=== PATIENT | female | born 1975 ===

== ENCOUNTER 2017-09-26 10:23 | Emergency (ER) | payer OTHER ==
[2017-09-26 10:24] VITALS: BMI 34.5
[2017-09-26 11:07] VITALS: TEMP 97.6
[2017-09-26 11:47] LABS: HCG,QUALITATIVE URINE NEGATIVE (NEGATIVE)
[2017-09-26 11:48] LABS: SQUAMOUS EPITHIAL < 1 /hpf (0-5); URINE BILIRUBIN NEGATIVE (NEGATIVE); URINE BLOOD NEGATIVE (NEGATIVE); URINE CLARITY Clear (Clear); URINE COLOR Yellow (YELLOW); URINE GLUCOSE (UA) NORMAL (Normal); URINE LEUKOCYTE ESTERASE NEG Leu/uL (Negative); URINE PROTEIN NEGATIVE (NEGATIVE); URINE UROBILINOGEN NORMAL mg/dL (0.2-1.0)
[2017-09-26] MEDS ORDERED: DiphenhydrAMINE 50 mg/ml Inj IVP STA (12:04)
--- NOTE | 2017-09-26 12:05 | C.PDOC ---
History Of Present Illness 41 y/o female presents to ED for evaluation of near syncope episode and dizziness developed earlier today. Patient reports she was at [employer] and " vision blurred" following by a near syncope episode. Patient describes dizzienss as "room spinning" and states head feels fuzzy, denies trauma, fever, nausea, vomiting, loc, numbness or any other complaints at this time. Time Seen by Provider: 09/26/17 11:02 Chief Complaint (Nursing): Weakness/Neurological Deficit History Per: Patient History/Exam Limitations: no limitations Onset/Duration Of Symptoms: Hrs Current Symptoms Are (Timing): Still Present Past Medical History Reviewed: Historical Data, Nursing Documentation, Vital Signs Vital Signs: Last Vital Signs Temp 97.6 F 09/26/17 10:49 Pulse 69 09/26/17 15:11 Resp 20 09/26/17 15:11 BP 137/62 09/26/17 15:11 Pulse Ox 100 09/26/17 15:11 - Medical History PMH: Anemia Surgical History: Tonsillectomy Family History: States: No Known Family Hx - Social History Hx Alcohol Use: No Hx Substance Use: No - Immunization History Hx Tetanus Toxoid Vaccination: No Hx Influenza Vaccination: No Hx Pneumococcal Vaccination: No Review Of Systems Constitutional: Negative for: Fever, Chills Eyes: Positive for: Vision Change Gastrointestinal: Negative for: Nausea, Vomiting Skin: Negative for: Rash Neurological: Positive for: Dizziness. Negative for: Weakness, Numbness, Headache Physical Exam - Physical Exam Appears: Non-toxic, No Acute Distress Skin: Warm, Dry, No Rash Head: Atraumatic, Normacephalic Eye(s): bilateral: PERRL, EOMI, Other (Horizontal nystagmus) Ear(s): Bilateral: Normal Oral Mucosa: Moist Throat: No Erythema, No Exudate Neck: Normal ROM, Supple Cardiovascular: Rhythm Regular Respiratory: Normal Breath Sounds, No Rales, No Rhonchi, No Wheezing Gastrointestinal/Abdominal: Soft, No Tenderness, No Guarding, No Rebound Back: Normal Inspection, CVA Tenderness Extremity: Normal ROM, No Swelling Neurological/Psych: Oriented x3, Normal Speech, Normal Cognition, Normal Motor Gait: Unsteady ED Course And Treatment - Laboratory Results Result Diagrams: 09/26/17 12:28 09/26/17 12:28 O2 Sat by Pulse Oximetry: 99 (RA) Pulse Ox Interpretation: Normal - CT Scan/US CT head w/o contrast Other Rad Studies (CT/US): Read By Radiologist, Radiology Report Reviewed CT/US Interpretation: PROCEDURE: CT HEAD WITHOUT CONTRAST. HISTORY: Headache and dizziness. COMPARISON: None available. TECHNIQUE: Axial computed tomography images were obtained through the head/brain without intravenous contrast. Radiation dose: Total exam DLP = 1225.43 mGy-cm. This CT exam was performed using one or more of the following dose reduction techniques: Automated exposure control, adjustment of the mA and/or kV according to patient size, and/or use of iterative reconstruction technique. FINDINGS: HEMORRHAGE: No intracranial hemorrhage. BRAIN: Rubio-white matter differentiation is preserved. There is no mass, mass effect or abnormal extra-axial fluid collection. There is no territorial infarction. The midline sagittal structures are normal. VENTRICLES: The ventricles are normal in size, shape and configuration. There is a 6 mm rim calcified lesion in the lateral aspect of the inferior 4th ventricle and similar 5 mm rim calcified lesion in the inferior midline 4th ventricle. No evidence of obstructive hydrocephalus. CALVARIUM: The skull base and calvarium are normal. PARANASAL SINUSES: Predominantly clear. MASTOID AIR CELLS: Predominantly clear. OTHER FINDINGS: None. IMPRESSION: No acute intracranial abnormality. Two subcentimeter rim calcified lesions in the lateral aspect of the inferior 4th ventricle and midline inferior 4th ventricle likely represents sequela of remote infection/ inflammation. However MRI of the brain without and with intravenous contrast is recommended for definitive evaluation. Medical Decision Making Medical Decision Making: On second re-exam, the patient reported that she still had dizziness and unsteady gait. The case was discussed with Dr. Darling who agreed to admit the patient for intractable dizziness and posterior circulation compromise. After the admission, the patient reports that she improved and is refusing the admission at this time. Patient signed out AMA. Disposition - Disposition Referrals: Arash Gutierrez MD [Staff Provider] - Disposition: AGAINST MEDICAL ADVICE Disposition Time: 14:00 Condition: STABLE Additional Instructions: Follow up with the medical doctor within 1-2 days. Return if worsened. Prescriptions: Meclizine HCl 25 mg PO TID #30 ctb Instructions: Vertigo (a Type of Dizziness) Forms: [employer] (Swedish) - Clinical Impression Clinical Impression: Vertigo - PA / LOG LOADER / Resident Statement MD/DO has reviewed & agrees with the documentation as recorded. - Scribe Statement The provider has reviewed the documentation as recorded by the Jarekibjones García All medical record entries made by the Magalys were at my direction and personally dictated by me. I have reviewed the chart and agree that the record accurately reflects my personal performance of the history, physical exam, medical decision making, and the department course for this patient. I have also personally directed, reviewed, and agree with the discharge instructions and disposition.
[2017-09-26] MEDS ORDERED: DiphenhydrAMINE 50 mg/ml Inj ONE (12:30)
[2017-09-26 12:31] LABS: BASO % 0.3 % (0.0-2.0); EOS % 0.4 % (0.0-4.0); LYMPH # 1.6 K/uL (1.0-4.3); LYMPH % 16.6 % (20.0-40.0); MEAN CORPUSCULAR HEMOGLOBIN 29.7 pg (27.0-31.0); MEAN CORPUSCULAR HGB CONC 33.9 g/dL (33.0-37.0); MEAN PLATELET VOLUME 6.6 fL (7.2-11.7); MONO # 0.5 K/uL (0.0-0.8); MONO % 5.2 % (0.0-10.0); NEUT # 7.4 K/uL (1.8-7.0); NEUT % 77.5 % (50.0-75.0); RBC 4.58 Mil/uL (3.80-5.20); WHITE BLOOD COUNT 9.5 K/uL (4.8-10.8)
[2017-09-26] MEDS ORDERED: Sodium Chloride 0.9% 1,000 ML ONE (12:31)
[2017-09-26 12:34] LABS: HEMOGLOBIN 13.6 g/dL (11.0-16.0); MEAN CELL VOLUME 87.6 fL (81.0-99.0)
[2017-09-26 12:45] LABS: ALB/GLOB RATIO 1.3 (1.0-2.1); ALT/SGPT 23 U/L (9-52); AST/SGOT 25 U/L (14-36); BLOOD UREA NITROGEN 11 mg/dL (7-17); CALCIUM 9.5 mg/dl (8.6-10.4); GFR AFRICAN-AMERICAN > 60; GFR NON-AFRICAN AMERICAN > 60
--- NOTE | 2017-09-26 13:07 | CT ---
PROCEDURE: CT HEAD WITHOUT CONTRAST. HISTORY: Headache and dizziness COMPARISON: None available. TECHNIQUE: Axial computed tomography images were obtained through the head/brain without intravenous contrast. Radiation dose: Total exam DLP = 1225.43 mGy-cm. This CT exam was performed using one or more of the following dose reduction techniques: Automated exposure control, adjustment of the mA and/or kV according to patient size, and/or use of iterative reconstruction technique. FINDINGS: HEMORRHAGE: No intracranial hemorrhage. BRAIN: Rubio-white matter differentiation is preserved. There is no mass, mass effect or abnormal extra-axial fluid collection. There is no territorial infarction. The midline sagittal structures are normal. VENTRICLES: The ventricles are normal in size, shape and configuration. There is a 6 mm rim calcified lesion in the lateral aspect of the inferior 4th ventricle and similar 5 mm rim calcified lesion in the inferior midline 4th ventricle. No evidence of obstructive hydrocephalus. CALVARIUM: The skull base and calvarium are normal. PARANASAL SINUSES: Predominantly clear. MASTOID AIR CELLS: Predominantly clear. OTHER FINDINGS: None. IMPRESSION: No acute intracranial abnormality. Two subcentimeter rim calcified lesions in the lateral aspect of the inferior 4th ventricle and midline inferior 4th ventricle likely represents sequela of remote infection/inflammation. However MRI of the brain without and with intravenous contrast is recommended for definitive evaluation.
[2017-09-26] MEDS ORDERED: Enoxaparin 40 mg Syringe SC SCH (14:00)
[2017-09-26 15:12] VITALS: BP 137/62; PULSE 69; RESP 20
--- NOTE | 2017-09-27 19:58 | CARD ---
APPROVED REPORT EKG Measurement Heart [id number] [id number] <Conclusion> Normal sinus rhythm Normal ECG
[2017-10-01 10:10] VITALS: O2SAT 99
== END 2017-09-26 15:11 | disposition left against medical advice (07) ==
LOC: C.ER 10:23
DX: R42 Dizziness and giddiness (principal)
CPT/HCPCS: 70450; 80053; 81001; 82948; 84703; 85025; 93005; 96374; 96375; 99285; J1200; J2765

== ENCOUNTER 2017-09-27 22:05 | Inpatient (IN) | payer OTHER ==
[2017-09-27 22:06] VITALS: BMI 34.5
[2017-09-27] MEDS ORDERED: Lactated Ringer's 1,000 ML IVB STA (22:40)
[2017-09-27 23:04] LABS: BASO # 0.1 K/uL (0.0-0.2); BASO % 0.6 % (0.0-2.0); EOS # 0.1 K/uL (0.0-0.7); EOS % 1.5 % (0.0-4.0); HEMOGLOBIN 12.6 g/dL (11.0-16.0); LYMPH # 2.3 K/uL (1.0-4.3); LYMPH % 26.7 % (20.0-40.0); MEAN CELL VOLUME 87.8 fL (81.0-99.0); MEAN CORPUSCULAR HEMOGLOBIN 29.8 pg (27.0-31.0); MEAN CORPUSCULAR HGB CONC 33.9 g/dL (33.0-37.0); MEAN PLATELET VOLUME 6.5 fL (7.2-11.7); MONO # 0.7 K/uL (0.0-0.8); MONO % 7.7 % (0.0-10.0); NEUT # 5.5 K/uL (1.8-7.0); NEUT % 63.5 % (50.0-75.0); RBC 4.22 Mil/uL (3.80-5.20); RED CELL DISTRIBUTION WIDTH 15.1 % (11.5-14.5); WHITE BLOOD COUNT 8.7 K/uL (4.8-10.8)
[2017-09-27] MEDS ORDERED: Iodixanol 320 MG/ML 100 ML BOTTLE IV ONE (23:12)
[2017-09-27 23:16] LABS: BLOOD UREA NITROGEN 15 mg/dL (7-17); CALCIUM 9.3 mg/dl (8.6-10.4); GFR AFRICAN-AMERICAN > 60; GFR NON-AFRICAN AMERICAN > 60
--- NOTE | 2017-09-28 00:39 | CT ---
EXAM: CT Head With Intravenous Contrast EXAM DATE/TIME: 09/27/2017 10:42 PM CLINICAL HISTORY: 41 years old, female; Pain; Headache and other: Dizzy, headache. Rim calcified lesions on nonconct; Patient HX: 09-26-17 TECHNIQUE: Axial computed tomography images of the head/brain with intravenous contrast. All CT scans at this facility use one or more dose reduction techniques, viz.: automated exposure control; ma/kV adjustment per patient size (including targeted exams where dose is matched to indication; i.e. head); or iterative reconstruction technique. Coronal and sagittal reformatted images were created and reviewed. CONTRAST: 100 mL of [id number] administered intravenously. COMPARISON: CT - HEAD W/O CONTRAST 2017-09-26 12:44 FINDINGS: Brain and ventricles: Ventricles are normal in size and configuration. There is no midline shift. Vascular structures enhance in the expected fashion. There are no enhancing masses. There are no intra-axial masses. There is a 4.8 mm nodule with calcified rim in the fourth ventricle. There is a 6 mm nodule in the fourth ventricle with a calcified rim. There are no abnormal fluid collections. Rubio-white differentiation is maintained. Bones: Cranial vault is intact. Soft tissues: unremarkable Sinuses: There is no acute sinusitis. Ears and mastoids: Middle ears and mastoids are unremarkable Orbits: Orbital contents are unremarkable. IMPRESSION: Small calcified nodules in the fourth ventricle, no intra-axial masses/lesions Findings raise the possibility of cysticercosis
--- NOTE | 2017-09-28 00:47 | C.PDOC ---
Time Seen by Provider: 09/27/17 22:27 Chief Complaint (Nursing): Dizziness/Lightheaded History Per: Patient, Family Onset/Duration Of Symptoms: Days (1), Waxing/Waning Current Symptoms Are (Timing): Still Present Fall Associated With With Symptoms: No Severity: Moderate Additional History Per: Prior Records - Symptoms Of CVA Recent Head Trauma: No Past Medical History Reviewed: Historical Data, Nursing Documentation, Vital Signs Vital Signs: Last Vital Signs Temp 99.2 F 09/27/17 22:20 Pulse 95 H 09/27/17 22:20 Resp 18 09/27/17 22:20 BP 125/73 09/27/17 22:20 Pulse Ox 99 09/27/17 22:20 - Medical History PMH: Anemia Other PMH: Ulcerative Colitis Surgical History: Tonsillectomy Family History: States: Unknown Family Hx - Social History Hx Alcohol Use: No Hx Substance Use: No - Immunization History Hx Tetanus Toxoid Vaccination: No Hx Influenza Vaccination: No Hx Pneumococcal Vaccination: No Review Of Systems Except As Marked, All Systems Reviewed And Found Negative. Constitutional: Negative for: Fever Cardiovascular: Negative for: Chest Pain Respiratory: Negative for: Shortness of Breath Gastrointestinal: Negative for: Vomiting, Abdominal Pain Musculoskeletal: Negative for: Neck Pain Skin: Negative for: Rash Neurological: Positive for: Numbness (left face, resolved), Headache, Dizziness. Negative for: Seizures Physical Exam - Physical Exam Appears: Non-toxic, No Acute Distress Skin: Normal Color, Warm, Dry, No Rash Head: Atraumatic, Normacephalic Eye(s): bilateral: Normal Inspection, PERRL, EOMI Neck: Normal ROM, Supple Cardiovascular: Rhythm Regular Respiratory: Normal Breath Sounds, No Accessory Muscle Use Gastrointestinal/Abdominal: Soft, No Tenderness Back: No CVA Tenderness Extremity: Normal ROM Neurological/Psych: Oriented x3, Normal Speech, Normal Cognition, No Cerebellar Signs, Normal Motor, Normal Sensation ED Course And Treatment - Laboratory Results Result Diagrams: 09/27/17 23:01 09/27/17 23:01 Lab Interpretation: No Acute Changes ECG: Interpreted By Me, Viewed By Me ECG Rhythm: Sinus Rhythm, Nonspecific Changes ECG Interpretation: No Acute Changes Rate From EC O2 Sat by Pulse Oximetry: 99 Pulse Ox Interpretation: Normal - CT Scan/US CT head with contrast Other Rad Studies (CT/US): Read By Radiologist, Radiology Report Reviewed CT/US Interpretation: IMPRESSION: Small calcified nodules in the fourth ventricle, no intra-axial. masses/lesions. . Findings raise the possibility of cysticercosis Disposition Discussed With : Wendy Guallpa Comment: She accepted pt on her service. She wants to consult Dr. Napier for neurology. Doctor Will See Patient In The: Hospital Counseled Patient/Family Regarding: Studies Performed, Diagnosis - Disposition Disposition: HOSPITALIZED Disposition Time: 00:49 Condition: FAIR - Clinical Impression Clinical Impression: Dizziness, Headache, Calcified intracranial lesions
[2017-09-28 02:01] VITALS: RESP 20
[2017-09-28 20:01] LABS: HDL CHOLESTEROL 57 mg/dL (30-70); LDL CHOLESTEROL 90 mg/dL (0-129)
[2017-09-28 20:06] LABS: IRON 90 ug/dL (37-170)
[2017-09-28 20:15] LABS: % IRON SATURATION 21 (20-55); TOTAL IRON BINDING CAPACITY 416 ug/dL (250-450)
[2017-09-28 21:13] LABS: FOLATE > 20.0 ng/mL
--- NOTE | 2017-09-29 02:04 | HP ---
The patient is a 41 years old female. CHIEF COMPLAINT: Dizziness and lightheadedness. HISTORY OF PRESENT ILLNESS: Ms. Trixie Ramirez is a 41 years old lady with history of anemia, ulcerative colitis, tonsillectomy. Came in [facility] with dizziness and lightheadedness, it is like waxing and waning, still present at the time of interview. No nausea or vomiting. No fever. No chills. was sitting at the bedside also. No hematuria. No dysuria. Discussion done with Dr. Low Napier. Need MRI. Reviewed CAT scan. PAST MEDICAL HISTORY: Anemia, ulcerative colitis, tonsillectomy. 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 FAMILY HISTORY: The patient does not know. SOCIAL HISTORY: Alcohol, no. Substance abuse, no. Smoking, no. REVIEW OF SYSTEMS: The patient is seen and examined at bedside. Looking comfortable. Still having dizziness and lightheaded, but improving. No fever. No chills. No hematuria or hematochezia. No swelling of the legs. No dysuria. PHYSICAL EXAMINATION: VITAL SIGNS: Temperature 99.2, pulse 95, respiratory rate 18, blood pressure 125/73, pulse oximetry 99%. HEENT: Head normocephalic and atraumatic. Eyes, PERRLA. Extraocular muscles intact. Conjunctivae clear. Nose patent. Mucous membranes moist. NECK: Supple. No carotid bruit, JVD, or thyromegaly. CHEST: Bilaterally symmetrical. HEART: S1 and S2 positive. LUNGS: Clear to auscultation. ABDOMEN: Soft. Bowel sounds present. No organomegaly. EXTREMITIES: No edema. No cyanosis. NEUROLOGICAL: The patient is awake, alert. Moving all 4 extremities. No focal deficits. LABORATORY DATA: White blood cells 8.7, hemoglobin 12.6, hematocrit 37, platelets 295. Sodium 141, potassium 4.4, BUN 60, creatinine 0.7, glucose 119. ASSESSMENT AND PLAN: Ms. Trixie Ramirez is a 41-year-old lady with hyperglycemia, came with headache and dizziness. CAT scan already done shows calcified nodule in the fourth ventricle, no intra-axial masses or lesions findings. There is a possibility of cystic necrosis. Discussion done with Dr. Low Napier. Will do MRI of the head but still getting little bit dizziness and headache. History of ulcerative colitis, tonsillectomy, appendectomy. Consult with Dr. Marco Antonio Cabrera, Infectious Disease. Will follow up with Dr. Krunal Azul for ulcerative colitis. Repeat labs. We will follow up. Wendy Guallpa MD
[2017-09-29 07:54] LABS: HEMOGLOBIN 13.4 g/dL (11.0-16.0); MEAN CELL VOLUME 87.8 fL (81.0-99.0); MEAN CORPUSCULAR HEMOGLOBIN 29.6 pg (27.0-31.0); MEAN CORPUSCULAR HGB CONC 33.7 g/dL (33.0-37.0); MEAN PLATELET VOLUME 6.7 fL (7.2-11.7); RBC 4.52 Mil/uL (3.80-5.20); RED CELL DISTRIBUTION WIDTH 14.8 % (11.5-14.5); WHITE BLOOD COUNT 7.2 K/uL (4.8-10.8)
[2017-09-29 08:10] LABS: BLOOD UREA NITROGEN 10 mg/dL (7-17); GFR AFRICAN-AMERICAN > 60; GFR NON-AFRICAN AMERICAN > 60
--- NOTE | 2017-09-29 08:18 | CON ---
DATE: 09/28/2017 CHIEF COMPLAINT: Calcified nodules in the fourth ventricle. No masses. Dizziness. 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 She also was lightheaded; therefore, came to the hospital for further evaluation. She had a CAT scan of her head, which showed small calcified nodules in the fourth ventricle. No intra-axial masses or lesions. Findings raise the possibility of cysticercosis. She has a history of eating uncooked pork upon taking her history, but with us many months ago. No focal seizures. No change in sense of vision, taste, or smell. No focal weakness of the extremities or paresthesias. PAST MEDICAL HISTORY: Anemia hospital acquired. FAMILY HISTORY: Noncontributory. SOCIAL HISTORY: No illicit drug use, smoking or EtOH abuse. ALLERGIES: NO KNOWN DRUG ALLERGIES. REVIEW OF SYSTEMS: A 14-point review of systems negative except per HPI. LABORATORY DATA: Sodium is 141, potassium 4.4, chloride 107, carbon dioxide 22, BUN of 15, creatinine of 0.7, random glucose of 118. PHYSICAL EXAMINATION: VITAL SIGNS: Temperature 98.5, pulse rate of 89, blood pressure 101/66, respiratory rate 20, oxygen saturation 97% on room air. GENERAL: The patient was sitting up in bed, in no acute distress. HEENT: She is atraumatic and normocephalic. PERRLA. Extraocular muscles intact. NECK: Supple. No JVD. No adenopathy noted. LUNGS: Clear to auscultation. No adventitious sounds. HEART: S1 and S2 normal. Regular rate and rhythm. No murmurs, rubs, or gallops. ABDOMEN: Soft, nontender, and nondistended. Bowel sounds present. EXTREMITIES: No clubbing. No cyanosis. Peripheral pulses 2+felt bilaterally. NEUROLOGIC: The patient is alert and oriented to person, place, month, and year. Speech is fluent without any errors. Cranial nerves II through XII are intact. Motor exam: Moves all extremities equally. Toes are downgoing bilaterally. Sensory exam: Light touch, pinprick, proprioception and, vibration are intact. DTRs are 2+ throughout. Coordination: Xotoro-on-tvep intact. No dysmetria noted. Gait is deferred for now. ASSESSMENT AND PLAN: This is a 41-year-old woman with history of anemia, ulcerative colitis, who presents with dizziness in terms of spinning sensation of the room suddenly with occasional nausea, but no vomiting. No focal weakness on neuro exam. She had a CAT scan of the head, shows calcified nodule in the fourth ventricle, could be suspicious for possibly old cysticercosis. She has history of eating uncooked pork many months ago. She has a very poor diet and poor eating habits as well. She is overweight for her height. At this time, her dizziness seems to be more like lightheadedness superimposed on positional vertigo. At this time, we recommend, 1. MRI of the brain with and without contrast to assess the calcified lesion of the fourth ventricle to see if it is cysticercosis or not. 2. Infectious Disease consult for possible cysticercosis in the past. 3. Vestibular therapies now. 4. Salt restriction in diet and avoid sudden movement and continue current and present medical management. Thank you for this consult. Low Napier MD
[2017-09-29] MEDS: Enoxaparin 30 mg Syringe SC SCH (10:08)
[2017-09-29] MEDS ORDERED: Gadodiamide 287 mg/ml 20 ml IV ONE (15:02)
--- NOTE | 2017-09-29 16:07 | MRI ---
PROCEDURE: MRI BRAIN WITH AND WITHOUT CONTRAST HISTORY: calcified lession in the fourth ventricle/. COMPARISON: Comparison is made with the previous CT of the head without contrast dated 09/27/2017 and 09/26/2017 TECHNIQUE: Multiplanar, multisequence MR images of the brain were obtained with and without intravenous contrast enhancement. FINDINGS: HEMORRHAGE: None DWI: No evidence of an acute or early subacute infarction. BRAIN PARENCHYMA: No evidence of enhancing mass lesion. The previously noted calcified lesion at the 4th ventricle in the previous CT are not clearly seen in the current study. No atrophy or chronic microvascular ischemic changes. ENHANCEMENT: No abnormal intracranial enhancement. VENTRICLES: Unremarkable. No hydrocephalus. CRANIUM: Unremarkable. ORBITS: Grossly unremarkable. PARANASAL SINUSES/MASTOIDS: Clear VASCULAR SYSTEM: Skull base flow voids intact. OTHER FINDINGS: None . IMPRESSION: No evidence of enhance mass lesion in the brain. No evidence of enhancing mass lesion in the 4th ventricle. Previously noted 2 rain calcified lesion at the 4th ventricle in the previous CT are not clearly visualized in this study. Six-month follow-up reassessment by CT or MRI is suggested to document stability. No evidence of hydrocephalus or acute pathology in the brain.
--- NOTE | 2017-09-29 16:08 | CP.PCM.CON ---
History of Present Illness - History of Present Illness History of Present Illness: INFECTIOUS DISEASE CONSULT; DICTATED; DICTATION NUMBER; # [id number] IMPRESSION; .DIZZINESS/BERGERON-LEFT TEMPORAL REGION-RESOLVED .R/O EXTRAPARENCHYMAL-CYSTICERCOSIS ( 2 SMALL CALCIFIED NODULES +VE FOURTH VENTRICLE BRAIN ) ? NONVIABLE CYSTS/ VS OLD CYSTICERCOSIS. . POSITIONAL VERTIGO. .HX OF ULCERATIVE COLITIS. PLAN; . CYSTICERCOSIS SEROLOGY. . fOLLOW-UP MRI OF THE BRAIN WITH AND WITHOUT CONTRAST. . ENT EVALUATION FOR VESTIBULAR FUNCTION. . PATIENT DENIES ANY VISUAL PROBLEMS /FLOATERS BUT IF WE NEED TREATMENT WILL NEED OPHTHALMOLOGY EVALUATION. . HIV 1/2 ANTIBODY. . CAT SCAN DOES NOT SHOW ANY VENTRICULAR DILATATION OR HYDROCEPHALUS AND NO ABNORMAL INTRACRANIAL ENHANCEMENT. WILL FOLLOW MRI BRAIN AND MAKE FURTHER RECOMMENDATIONS NEEDED. . PATIENT ENCOURAGED NOT TO EAT UNDERCOOKED PORK OR BEEF CASE DISCUSSED WITH STAFF/ AND WITH NEUROLOGY. Past Patient History - Infectious Disease Hx of Infectious Diseases: None - Past Medical History & Family History Past Medical History?: Yes - Past Social History Smoking Status: Never Smoked - CARDIAC Hx Cardiac Disorders: No - PULMONARY Hx Respiratory Disorders: No - NEUROLOGICAL Hx Neurological Disorder: No - HEENT Hx HEENT Problems: No - RENAL Hx Chronic Kidney Disease: No - ENDOCRINE/METABOLIC Hx Endocrine Disorders: No - HEMATOLOGICAL/ONCOLOGICAL Hx Blood Disorders: Yes Hx Anemia: Yes - INTEGUMENTARY Hx Dermatological Problems: No - MUSCULOSKELETAL/RHEUMATOLOGICAL Hx Musculoskeletal Disorders: No Hx Falls: No - GASTROINTESTINAL Hx Gastrointestinal Disorders: Yes Hx Colitis: Yes - GENITOURINARY/GYNECOLOGICAL Hx Genitourinary Disorders: No - PSYCHIATRIC Hx Psychophysiologic Disorder: No Hx Substance Use: No - SURGICAL HISTORY Hx Surgeries: Yes Hx Tonsillectomy: Yes - ANESTHESIA Hx Anesthesia: Yes Hx Anesthesia Reactions: No Hx Malignant Hyperthermia: No Meds Allergies/Adverse Reactions: Allergies Allergy/AdvReac Type Severity Reaction Status Date / Time No Known Allergies Allergy Verified 09/27/17 22:24 - Medications Medications: Current Medications Enoxaparin Sodium (Lovenox) 30 mg SC DAILY [facility] Last Admin: 09/29/17 10:08 Dose: 30 mg Famotidine (Pepcid) 40 mg PO DAILY [facility] Last Admin: 09/29/17 10:16 Dose: 40 mg Folic Acid (Folic Acid) 1 mg PO DAILY [facility] Last Admin: 09/29/17 10:09 Dose: 1 mg Meclizine HCl (Antivert) 25 mg PO TID PRN PRN Reason: Dizziness Pneumococcal Polyvalent Vaccine (Pneumovax 23 Vaccine) 0.5 ml IM .ONCE ONE Stop: 09/30/17 10:01 Results - Vital Signs Recent Vital Signs: Last Vital Signs Temp 98.1 F 09/29/17 08:02 Pulse 78 09/29/17 08:02 Resp 20 09/29/17 08:02 BP 100/65 09/29/17 08:02 Pulse Ox 97 09/29/17 08:02 - Labs Result Diagrams: 09/29/17 07:48 09/29/17 07:48 Labs: Laboratory Results - last 24 hr 09/28/17 09/28/17 09/28/17 19:18 19:18 19:18 WBC RBC Hgb Hct MCV MCH MCHC RDW Plt Count MPV Sodium Potassium Chloride Carbon Dioxide Anion Gap BUN Creatinine Est GFR ( Amer) Est GFR (Non-Af Amer) POC Glucose (mg/dL) Random Glucose Hemoglobin A1c 5.5 Calcium Iron 90 TIBC 416 % Saturation 21 Triglycerides 171 H Cholesterol 166 LDL Cholesterol Direct 90 HDL Cholesterol 57 Vitamin B12 > 1000 H Folate > 20.0 TSH 3rd Generation Urine HCG, Qual 09/29/17 09/29/17 09/29/17 07:15 07:17 07:27 WBC RBC Hgb Hct MCV MCH MCHC RDW Plt Count MPV Sodium Potassium Chloride Carbon Dioxide Anion Gap BUN Creatinine Est GFR ( Amer) Est GFR (Non-Af Amer) POC Glucose (mg/dL) 69 79 Random Glucose Hemoglobin A1c Calcium Iron TIBC % Saturation Triglycerides Cholesterol LDL Cholesterol Direct HDL Cholesterol Vitamin B12 Folate TSH 3rd Generation Urine HCG, Qual Negative 09/29/17 09/29/17 07:48 07:48 WBC 7.2 RBC 4.52 Hgb 13.4 Hct 39.7 MCV 87.8 MCH 29.6 MCHC 33.7 RDW 14.8 H Plt Count 294 MPV 6.7 L Sodium 141 Potassium 4.1 Chloride 106 Carbon Dioxide 25 Anion Gap 15 BUN 10 Creatinine 0.8 Est GFR ( Amer) > 60 Est GFR (Non-Af Amer) > 60 POC Glucose (mg/dL) Random Glucose 77 Hemoglobin A1c Calcium 9.0 Iron TIBC % Saturation Triglycerides Cholesterol LDL Cholesterol Direct HDL Cholesterol Vitamin B12 Folate TSH 3rd Generation 3.62 Urine HCG, Qual
[2017-09-30 00:55] VITALS: PULSE 78; O2SAT 98
--- NOTE | 2017-09-30 02:57 | PN ---
DATE: 09/29/2017 SUBJECTIVE: The patient seen and examined at the bedside on 09/29/2017. Looking comfortable. No nausea, vomiting or diarrhea. No hematuria or hematochezia. No swelling of the legs. No chest pain, no palpitation. Still having lightheadedness and dizziness. No fever, no chills. PHYSICAL EXAMINATION: VITAL SIGNS: Temperature 98.3, pulse 95, blood pressure 105/73, respiratory rate 20. HEENT: Head, normocephalic, atraumatic. Eyes, PERRLA. Extraocular muscles intact. Conjunctivae clear. Nose patent. Mucous membranes moist. NECK: Supple. No carotid bruits. No JVD, thyromegaly. CHEST: Bilaterally symmetrical. HEART: S1 and S2 positive. LUNGS: Clear to auscultation. ABDOMEN: Soft, bowel sounds present. No organomegaly. EXTREMITIES: No edema, no cyanosis. NEURO: The patient is awake, alert, moving all 4 extremities. No focal deficits. MEDICATIONS: Antivert, folic acid, Lovenox, Pepcid and Pneumovax. LABORATORY DATA: White blood cells 7.2, hemoglobin 13.4, hematocrit 39.7, platelets 294. Sodium 141, potassium 4.1, BUN 10, creatinine 0.8, triglyceride 171, vitamin B12 1000. ASSESSMENT AND PLAN: Ms. Trixie Ramirez is a 41-year-old lady with hypertriglyceridemia, test negative, came with headache and dizziness. CAT scan of the head and MRI of the head done. Neurology and ID is on the case, rule out cysticercosis, two small calcified nodules plus fourth ventricle brain, maybe positional vertigo, history of ulcerative colitis. Cysticercosis serology ordered. Followup MRI of the head with and without contrast ordered. ENT evaluation for vestibular function as per ID. The patient denies any visual problems or floaters but it may need treatment, will need Ophthalmology evaluation. Human immunodeficiency virus antibodies ordered. CAT scan of the head does not show any ventricular dilatation or hydrocephalus and no abnormal intracranial enhancement. The patient encouraged not to eat undercooked pork or beef. Appreciate Dr. Marco Antonio Cabrera's input. Discussion was done with Neurology. The patient has no focal weakness on neuro exam. According to Dr. Napier, the patient has poor dietary and eating habits, history of uncooked pork months ago. She is overweight, salt restriction in the diet, and avoid sudden movements and continue current treatment. GI, DVT prophylaxis. Repeat labs. Wendy Guallpa MD [facility]
--- NOTE | 2017-09-30 03:03 | CON ---
DATE: 09/29/2017 INFECTIOUS DISEASE CONSULTATION REQUESTED BY: Wendy Guallpa MD REASON FOR CONSULTATION: Dizziness and calcified nodule in the brain. HISTORY OF PRESENT ILLNESS: The patient is a 41-year-old female with no significant past medical history except for history of ulcerative colitis and anemia who has been followed by her GI as an outpatient. She presented to the emergency room on 09/27/2017, after she felt dizzy while she was at [employer]. Also states her vision blurred and she had almost a near-syncopal episode with the event. The patient described dizziness as room spinning and stated that head felt fuzzy. She denies any trauma or loss of consciousness. Denies any nausea, vomiting, numbness, or any other loss of function. The patient came to the ER where she was given Antivert and she felt better, she was discharged but on 09/28/2017 a day after that, she felt dizzy again and felt funny. Also complained of left-sided temporal headache, which has presently resolved and has not recurred. A CAT scan of the head was done, which showed small calcified nodules in the fourth ventricle about 4 mm and 6 mm. She does give a history of eating pork, but states she eats it well done and sometimes she eats it from a restaurant, but states she cooks it well. Denies any history of focal seizures or any change of vision, taste, or smell. Denies any focal weakness of extremities or paresthesias. The patient presently denies any vertigo. Denies any cranial neuropathies or any change in gait like ataxia. She denies any skin nodules, which she ever noticed on her body. Infectious Disease consultation was therefore requested for dizziness as well as for abnormal CAT scan of the head as reported. PAST MEDICAL HISTORY: As above. Anemia and ulcerative colitis. FAMILY HISTORY: Noncontributory. SURGICAL HISTORY: History of tonsillectomy. SOCIAL HISTORY: She denies smoking, drinking or any substance abuse. She is and lives with her . asymptomatic. Two kids asymptomatic. IMMUNIZATION HISTORY: She is not sure of tetanus toxoid, influenza vaccination or pneumococcal vaccination. MEDICATIONS: As per chart reviewed. REVIEW OF SYSTEMS: CONSTITUTIONAL: Denies any fevers, chills, or headache. EYES: Denies any vision change, any seizure disorder or any mode of weakness. GASTROINTESTINAL: Presently unremarkable. No nausea. No vomiting. No diarrhea. CENTRAL NERVOUS SYSTEM: History of dizziness, but presently denies any dizziness, headache, numbness, or weakness. SKIN: No rash. No nodules. Rest of the review of system is unremarkable. PHYSICAL EXAMINATION: VITAL SIGNS: The patient is afebrile, temperature 98.5, pulse of 89, blood pressure 101/69, respiratory rate 20, oxygen saturation is 99%. HEENT: Pupils are equal and reactive to light and accommodation. Extraocular movements full. Fundus negative. Sclerae nonicteric. NECK: Appears to be supple. No lymphadenopathy noted. No carotid bruits. LUNGS: Clear to auscultation. CARDIOVASCULAR SYSTEM: S1 and S2 normal. Regular rate and rhythm. No murmurs or gallops. ABDOMEN: Soft. Bowel sounds are present. Nondistended. No organomegaly appreciated. EXTREMITIES: No cyanosis, clubbing, or edema. CENTRAL NERVOUS SYSTEM: No gross deficits. Moves all extremities. Reflexes are equal and symmetrical. Cranial nerves II through XII intact. Toes are downgoing bilaterally. Sensation seems to be normal to pinprick, proprioception, and vibration. DTRs are 2+. [id number] is intact. No dysmetria noted. Gait is deferred for now. LABORATORY DATA: WBC 7.2, H and H of 13.4 and 39.7, platelet 293, no eosinophilia. Creatinine 0.8, BUN of 10. Hemoglobin A1c is 5.5. TSH is normal. Blood sugar is 79. IMPRESSION: 1. Dizziness with temporary headache in the left temporal region with abnormal CAT scan as noted. Ruled out extraparenchymal cysticercosis with two small calcified nodules noted in the fourth ventricle. Appeared to be nonviable cyst consistent with old cysticercosis. 2. Positional vertigo. PLAN: We will send for cysticercosis serology. Check MRI of the brain, which is pending as reported by neurologist, salt restriction and avoid sudden movements. The patient should be considered for vestibular function evaluation. We will follow up MRI and make further recommendations as needed. Thank you very much for allowing me to participate in the care of your patient. Case discussed with the staff. We will also discuss with PMD and follow up with you. Marco Antonio Cabrera MD [facility] # [id number]
--- NOTE | 2017-09-30 07:51 | PN ---
DATE: 09/30/2017 LOCATION: 352, bed A. SUBJECTIVE: This is a 41-year-old female, seen initially yesterday for GI consultation, seen again today without any significant clinical changes who had recently MRI of the brain. Initial report is seen with less episode of abdominal pain. No nausea, vomiting. No reported active bleeding, seen by the ID store consultant on the case, Dr. Marco Antonio Cabrera. The patient still has intermittent period of mild nausea with dyspepsia with change of bowel movement on and off with episode of slight dizziness. No chest pain, palpitation, significant shortness of breath, chills, or fever. The entire chart is reviewed including but not limited to the most recent lab and radiology study results, current and the previous medication list, current and the previous medical events. Case discussed with the staff at length. Most recent lab results showed normal CBC with mildly elevated triglycerides as well as increased vitamin B12 level. PHYSICAL EXAMINATION: GENERAL: A 41-year-old female, awake, alert, oriented. VITAL SIGNS: Afebrile with pulse of 74, respiratory rate 20 to 22, blood pressure of 102/60. HEENT: Showed mildly pale dry oral mucoid membrane. Nonicteric sclera. LUNGS: Few scattered crepitation. Decreased air entry at bases. HEART: Positive S1 and S2. ABDOMEN: Soft with mild generalized tenderness. No mass or organomegaly. No rebound tenderness or guarding. EXTREMITIES: Without significant edema, clubbing or cyanosis. IMPRESSION: 1. Severe anxiety syndrome. 2. Vertigo of unclear etiology. 3. Known history of ulcerative colitis. 4. Mild hyperglycemia of unclear etiology. SUGGESTIONS: 1. Agree with your plan. 2. The patient may need followup colonoscopy when she is more stable clinically. 3. Sedimentation rate. 4. CEA with CA-125. Further recommendation to follow. Krunal Azul MD
[2017-09-30] MEDS: Enoxaparin 30 mg Syringe SC SCH (09:46)
[2017-09-30] MEDS ORDERED: Pneumococcal 23-Valent Vaccine IM ONE (10:00)
[2017-09-30 11:07] LABS: BASO % 0.4 % (0.0-2.0); EOS # 0.1 K/uL (0.0-0.7); EOS % 1.6 % (0.0-4.0); HEMOGLOBIN 13.4 g/dL (11.0-16.0); LYMPH # 1.8 K/uL (1.0-4.3); LYMPH % 24.2 % (20.0-40.0); MEAN CELL VOLUME 87.8 fL (81.0-99.0); MEAN CORPUSCULAR HEMOGLOBIN 29.4 pg (27.0-31.0); MEAN CORPUSCULAR HGB CONC 33.5 g/dL (33.0-37.0); MEAN PLATELET VOLUME 6.8 fL (7.2-11.7); MONO # 0.5 K/uL (0.0-0.8); NEUT % 66.8 % (50.0-75.0); NRBC % 0.1 % (0.0-2.0); RBC 4.57 Mil/uL (3.80-5.20); RED CELL DISTRIBUTION WIDTH 15.1 % (11.5-14.5); WHITE BLOOD COUNT 7.5 K/uL (4.8-10.8)
[2017-09-30 11:22] LABS: ALB/GLOB RATIO 1.2 (1.0-2.1); ALBUMIN 3.8 g/dL (3.5-5.0); ALT/SGPT 20 U/L (9-52); AST/SGOT 19 U/L (14-36); BLOOD UREA NITROGEN 10 mg/dL (7-17); GFR AFRICAN-AMERICAN > 60; GFR NON-AFRICAN AMERICAN > 60
--- NOTE | 2017-09-30 12:15 | CARD ---
APPROVED REPORT EKG Measurement Heart [id number] <Conclusion> Normal sinus rhythm Minimal voltage criteria for LVH, may be normal variant Borderline ECG
--- NOTE | 2017-09-30 12:33 | CP.PCM.PN ---
Subjective - Date & Time of Evaluation Date of Evaluation: 09/30/17 Time of Evaluation: 12:33 - Subjective Subjective: CHIEF COMPLAINTS TODAY : afebrile Denies dizziness Denies headache Denies any visual problems. ROS. HEENT : N. Resp : No cough, wheezing ,pleuritic CP ,or hemoptysis Cardio : No anginal CP, PND, orthopnea, palpitation GI : No abd.pain, n/v ,diarrhea or GI bleeding . BUILDING SURVEYOR : No headache, vertigo, focal deficit. Musculoskel : No joint swelling , Derm : No rash Psych : Normal affect. Ext : No swelling ,calf pain PE. Pt. is alert awake in no distress. V.S As noted in the chart Head ,ear nose,throat and eyes : Normal. Neck : Supple with normal carotids. Lungs: Clear air entry. Heart : S1 & S2 normal with S4. No murmur. Abd : Soft non tender with normal bowel sounds. Neuro : Moves all ext. with no localized deficit. Ext : No edema with intact pulses.Non tender calves Derm : No rashes or decubitus ulcer. LABS/RADIOLOGY: WBC 7.5 h/h 13.4/40.2 Platelets 305 Renal functions okay LFTS N. HIV 1/2 AB -VE. MRI BRAIN W/WO CONTRAST -VE. Objective - Vital Signs/Intake and Output Vital Signs (last 24 hours): Temp Pulse Resp BP Pulse Ox 98.1 F 78 20 99/63 L 98 09/30/17 00:00 09/30/17 00:00 09/30/17 00:00 09/30/17 00:00 09/30/17 00:00 Intake and Output: 09/30/17 09/30/17 06:59 18:59 Intake Total 590 Balance 590 - Medications Medications: Current Medications Enoxaparin Sodium (Lovenox) 30 mg SC DAILY [facility] Last Admin: 09/30/17 09:46 Dose: 30 mg Famotidine (Pepcid) 40 mg PO DAILY [facility] Last Admin: 09/30/17 09:44 Dose: 40 mg Folic Acid (Folic Acid) 1 mg PO DAILY [facility] Last Admin: 09/30/17 09:44 Dose: 1 mg Meclizine HCl (Antivert) 25 mg PO TID PRN PRN Reason: Dizziness - Labs Labs: 09/30/17 10:59 09/30/17 10:59 Assessment and Plan - Assessment and Plan (Free Text) Assessment: IMPRESSION; .DIZZINESS/BERGERON-RESOLVED .Etiology not clear. MRI OF THE BRAIN-DID NOT SHOW ANY CALCIFIED OR NONCALCIFIED PARENCHYMAL OR EXTRAPARENCHYMAL LESIONS. NO VENTRICULAR DILATATION SEEN. NO HYDROCEPHALUS, NO EVIDENCE OF ENHANCING MASS LESIONS IN THE FOURTH VENTRICLE. CALCIFIED NODULES SEEN ON CT OF THE HEAD, NOT VISUALIZED ON MRI BRAIN. DOUBT CYSTICERCOSIS . ? POSITIONAL VERTIGO. .HX OF ULCERATIVE COLITIS. PLAN; . CYSTICERCOSIS SEROLOGY. -P . ENT EVALUATION FOR VESTIBULAR FUNCTION. . PATIENT DENIES ANY VISUAL PROBLEMS /FLOATERS PRESENTLY . PATIENT ENCOURAGED NOT TO EAT UNDERCOOKED PORK OR BEEF. .SIX-MONTH FOLLOW-UP BY CT OR MRI IS SUGGESTED TO DOCUMENT STABILITY. . Patient to follow-up as outpatient. Explained that if dizziness or headache returns to report to the ER/ or PMD CASE DISCUSSED WITH STAFF.
[2017-09-30 16:38] VITALS: BP 110/72; TEMP 98.3
--- NOTE | 2017-09-30 17:29 | CP.PCM.PN ---
Subjective - Date & Time of Evaluation Date of Evaluation: 09/30/17 Time of Evaluation: 17:29 - Subjective Subjective: alert and orientedx3, no sob or distress Objective - Vital Signs/Intake and Output Vital Signs (last 24 hours): Temp Pulse Resp BP Pulse Ox 98.3 F 78 20 110/72 98 09/30/17 15:15 09/30/17 15:15 09/30/17 15:15 09/30/17 15:15 09/30/17 15:15 Intake and Output: 09/30/17 09/30/17 06:59 18:59 Intake Total 590 300 Balance 590 300 - Medications Medications: Current Medications Enoxaparin Sodium (Lovenox) 30 mg SC DAILY [facility] Last Admin: 09/30/17 09:46 Dose: 30 mg Famotidine (Pepcid) 40 mg PO DAILY [facility] Last Admin: 09/30/17 09:44 Dose: 40 mg Folic Acid (Folic Acid) 1 mg PO DAILY [facility] Last Admin: 09/30/17 09:44 Dose: 1 mg Meclizine HCl (Antivert) 25 mg PO TID PRN PRN Reason: Dizziness - Labs Labs: 09/30/17 10:59 09/30/17 10:59 Assessment and Plan - Assessment and Plan (Free Text) Assessment: 41 year old female admitted with dizziness, headache, seen and examined. Alert and orientedx3, says the symptoms improved. MRI is negative, cleared by the neurologist. Discussed with DR Cabrera and DR Guallpa, plan to discharge home today. Advised to follow up with DR Cabrera and DR Napier the neurologist in 1 week.
--- NOTE | 2017-10-01 06:30 | CON ---
DATE: 09/28/2017 REQUESTING PHYSICIAN: Dr. Guallpa. REASON FOR CONSULTATION: Dizziness. HISTORY: This is a 41-year-old female who began having dizziness 4 days ago. It was constant, moderate in intensity, associated with vertigo. There was no hearing loss or ringing in the ears associated with it. The dizziness has resolved since. PAST MEDICAL HISTORY: As noted in the chart by me. MEDICATIONS: As noted in the chart by me. PHYSICAL EXAMINATION: HEAD: Atraumatic, normocephalic. FACE: Good facial movements bilaterally. CONSTITUTIONAL: Well fed, well nourished. COMMUNICATION: Communicates well and appropriately. EXTERNAL NOSE AND EARS: No masses. No lesions. No erythema. No edema. INTERNAL NOSE AND EARS: Deviated septum. No masses. No lesions. No erythema. No edema. ORAL CAVITY AND OROPHARYNX: No masses. No lesions. No erythema. No edema. LIPS AND GUMS: No masses. No lesions. No erythema. No edema. NECK: Supple. THYROID: No thyromegaly. No goiter. LYMPH NODES: No lymphadenopathy of the neck. ASSESSMENT: 1. Dizziness. 2. Deviated septum. PLAN: Dizziness was associated with feeling of faintness as the patient reported. Therefore, it is unlikely the dizziness is caused by the ear, even though the patient has vertigo, the dizziness caused by the ear usually is not associated with feeling faint or wanting to pass out. The patient is okay to be discharged from an ENT point of view as long as the patient can ambulate safety and take p.o. The patient should also be cleared by Neurology to be discharged home before being discharged home. Jak Little MD
== END 2017-09-30 17:51 | disposition home or self-care (01) | DRG 149 ==
LOC: C.ER 22:05 → C.3T 09-28 00:50
PROVIDERS: ADMIT Internal Medicine; ATTEND Internal Medicine
DX: R42 Dizziness and giddiness (principal); K51.90 Ulcerative colitis, unspecified, without complications; E66.3 Overweight; E78.1 Pure hyperglyceridemia; F41.9 Anxiety disorder, unspecified; J34.2 Deviated nasal septum; D64.9 Anemia, unspecified; R51 Headache; R73.9 Hyperglycemia, unspecified; Z68.38 Body mass index [BMI] 38.0-38.9, adult